=== PATIENT | male | born 1995 | race Caucasian/White ===

== ENCOUNTER 2019-05-28 13:38 | Outpatient (RCR) | payer OTHER | END 2019-05-31 13:42 | disposition home or self-care (01) | LOC: WSOH 13:38 | DX: M51.16 Intervertebral disc disorders with radiculopathy, lumbar region (principal); M54.5 Low back pain; W18.41XA Slipping, tripping and stumbling without falling due to stepping on object, initial encounter; Y92.63 Factory as the place of occurrence of the external cause; Y99.0 Civilian activity done for income or pay; Z79.899 Other long term (current) drug therapy ==